=== PATIENT | female | born 1975 | race Caucasian/White ===

== ENCOUNTER 2017-11-24 19:38 | Emergency (ER) | payer SELFPAY ==
[2017-11-24] MEDS ORDERED: DEXAMETHASONE SOD PHOS INJ 10 MG/1 ML VIAL IM ONE (21:14)
[2017-11-24] MEDS ORDERED: KETOROLAC TROMETHAMINE 60 MG/2 ML SDV IM ONE (21:14)
--- NOTE | 2017-11-24 21:39 | ER Document Report ---
HPI - HPI Patient complains to provider of: left arm hurting and tingling Onset: Other Onset/Duration: Intermittent, Worse Quality of pain: Achy, Other - tingling Severity: Moderate Pain Level: 4 Context: Patient states she has been having intermittent tingling and numbness to left arm over the last 2 weeks. Patient denies chest pain or shortness of breath. Patient denies known neck injury. Associated Symptoms: None Relieved by: Denies Similar symptoms previously: No Recently seen / treated by doctor: No - ROS ROS below otherwise negative: Yes Systems Reviewed and Negative: Yes All other systems reviewed and negative - NEURO Neurology: DENIES: Headache, Weakness, Vision blurred - CARDIOVASCULAR Cardiovascular: DENIES: Chest pain - RESPIRATORY Respiratory: DENIES: Trouble Breathing - MUSCULOSKELETAL Musculoskeletal: REPORTS: Extremity pain - DERM Skin Color: Normal Past Medical History - General Information source: Patient - Social History Smoking Status: Current Every Day Smoker Cigarette use (# per day): Yes Chew tobacco use (# tins/day): No Frequency of alcohol use: None Drug Abuse: None Lives with: Family Family History: Reviewed & Not Pertinent Patient has suicidal ideation: No Patient has homicidal ideation: No GI Medical History: Reports: Hx Gastroesophageal Reflux Disease Musculoskeltal Medical History: Reports Hx Fibromyalgia Psychiatric Medical History: Reports: Hx Depression Past Surgical History: Reports: Hx Section, Hx Cholecystectomy, Hx Orthopedic Surgery Vertical Provider Document - CONSTITUTIONAL Agree With Documented VS: Yes Exam Limitations: No Limitations General Appearance: WD/WN, No Apparent Distress - INFECTION CONTROL TRAVEL OUTSIDE OF THE [place] IN LAST 30 DAYS: No - HEENT HEENT: Normocephalic - NECK Notes: Patient has tender left cervical and trapezius muscles extending across shoulder down to scapula. Decreased range of motion in turning neck towards left shoulder. Discomfort with flexion and extension. Mild tenderness to C- spine. 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 Neurovascular is intact to left arm/ hand patient states left arm is tingling constantly. - NEURO Level of Consciousness: Awake, Alert, Appropriate - DERM Integumentary: Warm, Dry Course - Re-evaluation Re-evalutation: 11/24/17 22:06 X-ray shows mild disc disease at C6 and 7. This was discussed with the patient. Patient states she has gotten some relief from the pain with the Toradol and Decadron injection. - Vital Signs Vital signs: Temp Pulse Resp BP Pulse Ox 97.9 F 103 H 16 135/77 H 94 11/24/17 20:05 11/24/17 20:05 11/24/17 20:05 11/24/17 20:05 11/24/17 20:05 Discharge - Discharge Clinical Impression: Neck pain, Paresthesia of left arm Condition: Good Disposition: HOME, SELF-CARE Additional Instructions: Naproxen every 12 hours as prescribed, take with food Muscle relaxers as prescribed Heat packs across left shoulder Follow-up with your doctor Monday for recheck Return as needed Prescriptions: Baclofen [Baclofen 10 mg Tablet] 10 mg PO TID PRN #15 tablet PRN Reason: Naproxen 500 mg PO BID #20 tablet Referrals: CORRINE KERR PA-C [Primary Care Provider] - Follow up as needed
--- NOTE | 2017-11-24 21:59 | RADIOLOGY REPORT (SQ) ---
EXAM DESCRIPTION: CERV SP 4 OR 5 VIEWS COMPLETED DATE/TIME: 11/24/2017 9:50 pm REASON FOR STUDY: pain, paresthesias left arm COMPARISON: None. NUMBER OF VIEWS: Five views. TECHNIQUE: AP, lateral, obliques and odontoid radiographic images acquired of the cervical spine. LIMITATIONS: None. FINDINGS: MINERALIZATION: Normal. ALIGNMENT: Anatomic. VERTEBRAE: Vertebral bodies of normal height. DISCS: C6-7 mild disc space narrowing with minimal anterior osteophytes. Remaining discs are maintai nisa. FORAMINA: No osteophytes or foraminal narrowing. LATERAL AND POSTERIOR ELEMENTS: Facets, lateral masses and spinous processes without significant find ings. HARDWARE: None in the spine. SOFT TISSUES: No masses or calcifications. Lung apices clear. OTHER: No other significant finding. IMPRESSION: No fracture or worrisome bone lesion or spinal malalignment. Mild disc disease at C6-7. TECHNICAL DOCUMENTATION: JOB ID: [id number] [employer]- All Rights Reserved Reading location - IP/workstation name: [email or web address]
[2017-11-24 22:42] VITALS: BP 124/60
== END 2017-11-24 22:45 | disposition home or self-care (01) ==
LOC: ER 19:38
DX: M79.602 Pain in left arm (principal); M54.2 Cervicalgia; R20.2 Paresthesia of skin; F17.210 Nicotine dependence, cigarettes, uncomplicated; Z90.49 Acquired absence of other specified parts of digestive tract
CPT/HCPCS: 99283; 96372; 72050; J1885; J1100